=== PATIENT | female | born 1995 | race Caucasian/White ===

== ENCOUNTER 2017-06-17 08:55 | Emergency (ER) | payer OTHER ==
[~2017-06-17] VITALS: Ht 167.6 cm; Wt 103.0 kg
[~2017-06-17 08:55] MED LIST: CONC18TA OR; METH18 PO
[2017-06-17 08:59] VITALS: BP 150/79; PULSE 101; RESP 18; TEMP 98.1; O2SAT 98
--- NOTE | 2017-06-17 09:17 | PD ---
HPI Chief Complaint: ENT Complaint Time Seen by Provider: 09:11 Travel History International Travel<30 days: No Contact w/Intl Traveler<30days: No Traveled to known affect area: No History of Present Illness HPI Patient comes to the emergency room complaining of left ear and throat pain began yesterday. Describes a burning scratchy pain in her throat that radiates back and forth between her ear and her throat. Patient reports subjective fever yesterday. Patient is taking Tylenol or ibuprofen for symptomatic relief that seems to help some. Throat pain is worse with swallowing. Patient reports 3 episodes of nonbloody and nonbilious vomiting today. Patient reports associated headache improved with ibuprofen. Denies any chest pain or shortness of breath, abdominal pain, loss or change in bowel or bladder, or . PFSH Past Medical History Medical History: Denies Significant Hx Social History Tobacco Use: No Substance Use: No Allergies-Medications (Allergen,Severity, Reaction): Coded Allergies: cat dander (Unverified Allergy, Intermediate, 06/17/17) Reported Meds & Prescriptions Reported Meds & Active Scripts Active No Active Prescriptions or Reported Medications Review of Systems Except as stated in HPI: all other systems reviewed are Neg Physical Exam Narrative GENERAL: Well-developed, overly nourished, in no acute distress, and non-ill appearing. SKIN: Focused skin assessment warm and dry. HEAD: Atraumatic. Normocephalic. EYES: Pupils equal and round. EOMI. No scleral icterus. No injection or drainage. ENT: No nasal bleeding or discharge. Mucous membranes pink and moist. Tympanic membrane pearly mario left and obscured on the right by cerumen. Posterior pharynx mildly erythematous without exudate. Uvula is midline. No tenderness to facial sinuses to palpation. Patient is swallowing own saliva and speaking in full sentences without difficulty. NECK: Trachea midline. No cervical lymphadenopathy. Supple. No nuclear rigidity. CARDIOVASCULAR: Regular rate and rhythm. No murmur appreciated. RESPIRATORY: No accessory muscle use. No respiratory distress. Clear to auscultation. Breath sounds equal bilaterally. GASTROINTESTINAL: Abdomen soft, non-tender, nondistended, and no guarding. Hepatic and splenic margins not palpable. Normal bowel sounds x4. No pulsatile mass. MUSCULOSKELETAL: No obvious deformities. No clubbing. No cyanosis. No edema. Full range of motion. NEUROLOGICAL: Awake and alert. No obvious cranial nerve deficits. Motor grossly within normal limits. Normal speech. PSYCHIATRIC: Appropriate mood and affect; insight and judgment normal. Data Data Last Documented VS Vital Signs Date Time Temp Pulse Resp B/P (MAP) Pulse Ox O2 Delivery O2 Flow Rate FiO2 06/17/17 10:06 06/17/17 08:59 98.1 101 18 98 Room Air Orders Orders Group A Rapid Strep Screen (06/17/17 09:14) Influenzae A/B Antigen (06/17/17 09:14) Strep Culture (Group A) (06/17/17 09:21) Ed Discharge Order (06/17/17 09:44) MDM Medical Decision Making Medical Screen Exam Complete: Yes Emergency Medical Condition: Yes Differential Diagnosis Viral pharyngitis, strep titers, influenza, URI, viral syndrome Narrative Course Patient looks great, non-ill appearing. The patient is tolerating fluids and is well hydrated. Appears viral pharyngitis with viral symptom complex. No clinical evidence by history or evaluation to suspect meningitis and/or sepsis. There was no evidence to suggest peritonsillar abscess or retropharyngeal abscess. I discussed with the patient, diagnosis, plan of care and to follow up with the patients primary physician. The patient was instructed to return if the worsens in anyway, especially if not tolerating fluids, increased pain or swelling, difficulty swallowing or breathing, or as needed. The patient agreed with plan. Patient in no obvious distress upon re-evaluation. All pertinent laboratory result(s) discussed with patient. Any questions/concerns in reference to patient diagnosis/condition discussed and clarified prior to patient's discharge. Reinforced sheer importance of close follow up with patient's primary physician or primary care clinic. Instructed patient to return to ED immediately, if symptoms return/worsen. Patient showed understanding of above instructions. Further instructions and recommendations were detailed in discharge paperwork. Patient ambulated without difficulty out of ED at discharge. Diagnosis Primary Impression: Viral syndrome Referrals: [facility] Patient Instructions: General Instructions, Viral Syndrome (ED) Additional Instructions: Follow-up with your primary care physician in 3-5 days for reevaluation. He is a very countertop and ibuprofen as needed for pain and fever control. Follow instructions on the packaging. Plenty of non-caffeinated nonalcoholic fluids. Gargle with warm salt water for symptomatic relief of throat pain. Return to the emergency department if symptoms get worse. Scripts No Active Prescriptions or Reported Meds Disposition: 01 DISCHARGE HOME Condition: Stable Ted Carbajal Jun 17, 2017 09:17
== END 2017-06-17 10:18 | disposition home or self-care (01) ==
LOC: PHEFT 08:55
DX: B34.9 Viral infection, unspecified (principal); H92.02 Otalgia, left ear; R07.0 Pain in throat; R50.9 Fever, unspecified; R11.10 Vomiting, unspecified; R51 Headache
CPT/HCPCS: 87081; 87804; 87880; 99283